=== PATIENT | female | born 1985 | race Caucasian/White ===

== ENCOUNTER 2023-01-16 21:33 | Day surgery (SDC) | payer OTHER ==
[~2023-01-16 21:33] MED LIST: LACTATED RINGERS 1,000 ML IV ONE
[2023-01-16] MEDS ORDERED: LORazepam 2 MG/ML VIAL IVP STA (22:58)
--- NOTE | 2023-01-16 23:15 | HISTORY & PHYSICAL EXAMINATION ---
HPI - Admitted From Admitted from: ED - History Obtained From History obtained from: Patient Exam limitations: No limitations - History of Present Illness Pain/Problem Location Description: Fell on baby gate and now has enlarging vulvar hematoma Severity at the worst: reports: Severe PMH/PSH - Past Medical History Respiratory: positive: None Neuro: positive: None Endocrine/Autoimmune: positive: None GI: positive: None AUTOMOBILE GLASS TECHNICIAN: positive: None, Other (regular menses. 2 vag deliveries. hsuband with vas.) : positive: None HEENT: positive: None, Other (wisdom teeth removed no anesthesia) Psych: positive: None Musculoskeletal: positive: None Derm: positive: None MRSA Hx?: No Social & Family Hx - Living Situation Living Arrangement: At home Living Situation: With family (, 14 yo daughter and 2 yo daughter) - Social History Smoking Status: Never smoker Does the pt drink ETOH?: No Does the pt have substance abuse?: No - POLST Patient has POLST: No - Family History Family History: Mother: Alive and Well Meds/Allgy - Home Medications Home Medications: Ambulatory Orders Medication Instructions Recorded Confirmed No Known Home Medications 01/16/23 01/16/23 - Allergies Allergies/Adverse Reactions: Allergies Allergy/AdvReac Type Severity Reaction Status Date / Time acetaminophen [From Percocet] AdvReac Unknown Verified 01/16/23 21:45 hydrocodone [From Vicodin] AdvReac Unknown Verified 01/16/23 21:46 oxycodone [From Percocet] AdvReac Unknown Verified 01/16/23 21:45 Review of Systems - Constitutional Constitutional: denies: Fever Exam - Vital Signs Reviewed Vital Signs: Yes Vital Signs: Vital Signs x48h Temp Pulse Resp BP Pulse Ox 01/16/23 22:00 91 17 123/72 100 01/16/23 21:38 98.6 F 98 17 111/60 99 - Physical Exam General Appearance: positive: Severe distress, Anxious Cardiovascular: positive: Regular rate & rhythm Extremities: positive: Non-tender Comments/Other: right vulva with enlarging hematoma. very very tender. about 7 cm Impression/Plan - Problem List Problem List: vulvar hematoma. discussed conservative management vs evacuation. given that it is pretty large and seems to be a bit larger since she has arrived in ER, recommend proceed to OR to evacuate. risks of procedure discussed, including bleeding, infection, scarring. will try to stay away from clitoral area to preserve those nerves. consent signed. present for discussion and surgical plan.
[2023-01-16 23:19] LABS: BASOPHILS # (AUTO) 0.1 10^3/uL (0.0-0.1); BASOPHILS % (AUTO) 0.6 %; EOSINOPHILS # (AUTO) 0.1 10^3/uL (0.0-0.7); EOSINOPHILS % (AUTO) 0.8 %; HCT - HEMATOCRIT 39.6 % (37.0-47.0); HGB - HEMOGLOBIN 12.7 g/dL (12.0-16.0); LYMPHOCYTES % (AUTO) 12.5 %; MEAN CORPUSCULAR HEMOGLOBIN 28.2 pg (27.0-31.0); MEAN CORPUSCULAR HGB CONC 32.1 g/dL (32.0-36.0); MEAN PLATELET VOLUME 11.5 fL (7.9-10.8); MONOCYTES # (AUTO) 0.9 10^3/uL (0.0-1.0); MONOCYTES % (AUTO) 5.7 %; NEUTROPHILS # (AUTO) 12.9 10^3/uL (1.5-6.6); NEUTROPHILS % (AUTO) 80.1 %; PLT - PLATELET COUNT 235 10^3/uL (130-450); WHITE BLOOD COUNT 16.1 x10^3/uL (4.8-10.8)
--- NOTE | 2023-01-16 23:22 | ED Physician Documentation ---
PD HPI ABD PAIN - Stated complaint Stated Complaint: FALL/ - Chief complaint Chief Complaint: General - History obtained from History obtained from: Patient, Family - History of Present Illness Pain level max: 9 Pain level now: 9 Quality: Pain Associated symptoms: No: Fever, Nausea, Vomiting, Hematemesis, Diarrhea - Additional information Additional information: Patient is a 37-year-old female who tripped and fell onto a baby gate today injuring her right labia. Noted swelling and increasing pain. No bleeding. Nothing makes it better or worse. Not on blood thinners. No fevers. No chills. Denies any possibility of . Review of Systems Constitutional: denies: Fever, Chills GI: denies: Vomiting, Diarrhea : denies: Dysuria, Frequency, Hesitancy, Now [facility] PD PAST MEDICAL HISTORY - Past Medical History Past Medical History: No Cardiovascular: None Respiratory: None Neuro: None Endocrine/Autoimmune: None GI: None PLUMBING WAREHOUSE HELPER: None, Other (regular menses. 2 vag deliveries. hsuband with vas.) : None HEENT: None, Other (wisdom teeth removed no anesthesia) Psych: None Musculoskeletal: None Derm: None - Past Surgical History Past Surgical History: No - Present Medications Home Medications: Ambulatory Orders Medication Instructions Recorded Confirmed No Known Home Medications 01/16/23 01/16/23 - Allergies Allergies/Adverse Reactions: Allergies Allergy/AdvReac Type Severity Reaction Status Date / Time acetaminophen [From Percocet] AdvReac Unknown Verified 01/16/23 21:45 hydrocodone [From Vicodin] AdvReac Unknown Verified 01/16/23 21:46 oxycodone [From Percocet] AdvReac Unknown Verified 01/16/23 21:45 - Social History Does the pt smoke?: No Smoking Status: Never smoker Does the pt drink ETOH?: No Does the pt have substance abuse?: No - Immunizations Immunizations are current?: Yes - POLST Patient has POLST: No PD ED PE NORMAL - Vitals Vital signs reviewed: Yes - General General: Alert and oriented X 3, No acute distress - HEENT HEENT: Moist mucous membranes - Neck Neck: Supple, no meningeal sign - Cardiac Cardiac: RRR, Strong equal pulses - Respiratory Respiratory: No respiratory distress, Clear bilaterally - Abdomen Abdomen: Soft, Non tender, Non distended - Derm Derm: Warm and dry - Extremities Extremities: Other (Large right-sided vulvar hematoma.) - Neuro Neuro: Alert and oriented X 3 - Psych Psych: Normal mood, Normal affect Results - Vitals Vitals: Vital Signs - 24 hr 01/16/23 01/16/23 21:38 22:00 Temperature 37.0 C Heart Rate 98 91 Respiratory 17 17 Rate Blood Pressure 111/60 123/72 O2 Saturation 99 100 Oxygen O2 Source Room air PD Medical Decision Making - ED course Complexity details: reviewed results, re-evaluated patient, considered differential, d/w patient, d/w family, 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 Discussed the case with gynecology, Dr. Santos who came and evaluated the patient. She will take her to the OR for evacuation. Patient was given a dose of IV Ativan. This document was made in part using voice recognition software. While efforts are made to proofread this document, sound alike and grammatical errors may occur. Departure - Departure Disposition: ED Transfer to [facility] Clinical Impression: Vulvar hematoma Condition: Stable
[2023-01-16] MEDS ORDERED: SUCCINYLCHOLINE 200 MG/10 ML VIAL ONE (23:26)
[2023-01-16] MEDS ORDERED: PROPOFOL 200 MG/20 ML VIAL IVP ONE (23:26)
[2023-01-16] MEDS ORDERED: fentaNYL 100 MCG/2 ML VIAL ONE (23:26)
[2023-01-16] MEDS ORDERED: MIDAZOLAM 2 MG/2 ML VIAL ONE (23:26)
[2023-01-16 23:27] LABS: PARTIAL THROMBOPLASTIN TIME 33.4 secs (24.9-33.3)
[2023-01-16 23:31] LABS: INR 1.2 (0.8-1.2); PT - PROTHROMBIN TIME 12.6 secs (9.9-12.6)
[2023-01-16 23:34] LABS: ALBUMIN 4.7 g/dL (3.2-5.5); BILIRUBIN,TOTAL 0.4 mg/dL (0.2-1.0); POTASSIUM 3.4 mmol/L (3.5-4.5)
[2023-01-16] MEDS ORDERED: DEXAMETHASONE 4 MG/ML VIAL ONE (23:47)
[2023-01-17] MEDS ORDERED: LIDOCAINE 1%-EPI 1:100000 20 ML MDV SUBQ ONE ×2 (00:04)
--- NOTE | 2023-01-17 00:06 | ANESTHESIA ---
Pre-Anesthesia VS, & Labs - Diagnosis expanding vulvar hematoma - Procedure evacuation of vulvar hematoma Vital Signs: Temp Pulse Resp BP Pulse Ox O2 Flow Rate 37.0 C 95 16 109/70 99 01/16/23 21:38 01/16/23 23:30 01/16/23 23:30 01/16/23 23:30 01/16/23 23:30 Height: 5 ft 11 in Weight (kg): 90.265 kg Body Mass Index: 27.7 BMI Classification: Overweight - NPO Last Food Intake: 529-chicken burritos - Is Patient ?: No - Lab Results Current Lab Results: Laboratory Tests 01/16/23 23:23: Blood Type Recheck O POSITIVE 01/16/23 23:12: Sodium 137, Potassium 3.4 L, Chloride 107, Carbon Dioxide 22, Anion Gap 8.0, BUN 15, Creatinine 1.0, Estimated GFR (MDRD) 63 L, Glucose 118 H, Calcium 10.0, Total Bilirubin 0.4, AST 9 L, ALT 6 L, Alkaline Phosphatase 62, Total Protein 7.0, Albumin 4.7, Globulin 2.3, Albumin/Globulin Ratio 2.0, Lipase 22 01/16/23 23:12: PT 12.6, INR 1.2, APTT 33.4 H 01/16/23 23:12: WBC 16.1 H, RBC 4.50, Hgb 12.7, Hct 39.6, MCV 88.0, MCH 28.2, MCHC 32.1, RDW 13.0, Plt Count 235, MPV 11.5 H, Neut # (Auto) 12.9 H, Lymph # (Auto) 2.0, Page # (Auto) 0.9, Eos # (Auto) 0.1, Baso # (Auto) 0.1, Absolute Nucleated RBC 0.00, Nucleated RBC % 0.0 01/16/23 23:12: Blood Type O POSITIVE, Antibody Screen NEGATIVE Lab results reviewed: Yes Fish Bones: 01/16/23 23:12 01/16/23 23:12 Home Medications and Allergies Home Medications: Ambulatory Orders No Known Home Medications 01/16/23 No Known Home Medications 01/16/23 Allergies/Adverse Reactions: Allergies Allergy/AdvReac Type Severity Reaction Status Date / Time acetaminophen [From Percocet] AdvReac Unknown Verified 11/29/23 21:45 hydrocodone [From Vicodin] AdvReac Unknown Verified 01/16/23 21:46 oxycodone [From Percocet] AdvReac Unknown Verified 01/16/23 21:45 Anes History & Medical History - Anesthetic History Family history of Anesthesia Complications: Denies Family history of Malignant Hyperthermia: Denies - Medical History Cardiovascular: reports: None Pulmonary: reports: None Gastrointestinal: reports: None Urinary: reports: None Neuro: reports: None Musculoskeletal: reports: None Endocrine/Autoimmune: reports: None Blood Disorders: reports: None Skin: reports: None Smoking Status: Never smoker Psychosocial: reports: Cannabis (daily use, smokes) Exam General: Alert, Oriented x3, Cooperative, No acute distress Dental: WNL Mouth Openin Fingerbreadth Neck Mobility: Normal Mallampati classification: I Thyromental Distance: 4-6 cm Mental/Cognitive Status: Alert/Oriented X3, Normal for patient Plan Anesthesia Type: General Consent for Procedure(s) Verified and Reviewed: Yes Code Status: Attempt Resuscitation ASA classification: 2-Mild systemic disease Is this case an emergency?: Yes
[2023-01-17] MEDS ORDERED: fentaNYL 100 MCG/2 ML VIAL IVP PRN (00:08)
[2023-01-17] MEDS ORDERED: MORPHINE 2 MG/ML CARPUJECT IVP PRN (00:08)
[2023-01-17] MEDS ORDERED: NALOXONE 0.4 MG/ML VIAL IVP PRN (00:08)
[2023-01-17] MEDS ORDERED: HYDROmorphone 0.5 MG/0.5 ML SYRINGE IVP PRN (00:08)
[2023-01-17] MEDS ORDERED: ONDANSETRON 4 MG/2 ML VIAL IVP PRN (00:08)
[2023-01-17] MEDS ORDERED: ATROPINE ABBOJECT 1 MG/10 ML SYRINGE IVP PRN (00:08)
[2023-01-17] MEDS ORDERED: HYDROmorphone 1 MG/ML CARPUJECT ONE (00:14)
[2023-01-17] MEDS ORDERED: BUPIVACAINE 0.5% PF 10 ML VIAL SUBQ ONE (00:30)
--- NOTE | 2023-01-17 00:56 | OPERATIVE REPORT ---
Operative Report - General Procedure Date: 01/17/23 Planned Procedure: evacuation vulvar hematoma on right. Pre-Op Diagnosis: vulvar hematoma right Procedure Performed: evacuation of right vulvar hematoma Post Op Diagnosis: same - Procedure Note Primary Surgeon: Sheila Santos MD Anesthesia Provider: Ayleen Ramos CRNA IV Fluids (mL): 1,200 Estimated Blood Loss (mL): 100 Urine Output (mL): 50 Findings: vulvar hematoma approx 10 cm long, 4 cm high and 7 cm wide on right. Complications: none - Other Other Information/Narrative: Patient brought to OR and general anesthesia was administered with ETT. Patient's legs were put in Carson-type stirrups. vulvar area prepped with hibiclens. Patient was draped. 2 gram Ancef were given. Time out was done. 11 blade was used to open the skin on the right vulva at the fold of the labia minora to majora, about 4cm. suction was placed and blood was evacuated. there was still red fresh blood flowing. there was very little clotted blood. The tissue around the opening was compressed trying to get all the blood out that I was able to. the bleeding was coming from lower in the wound, likely coming from the posterial labial artery and maybe the artery to the vestibular bulb. I did not see an active pumper but the blood pooled up immediately once it was cleared. I placed a figure of 8 stitch in the area I thought was bleeding and it did not stop so I did not tie this. I then identified the bleeding below this area and a bit laterally and placed a 2 figure of 8 stitches there and the bleeding pretty much stopped. I used 3-0 Vicryl for this. I used this stitch to close the deep open spaces. I injected with some lidocaine with epi and then 0.5% Marcaine. Then I used a 3-0 Monocryl to close the sub Q and subcuticular spaces. The area was still puffy and bruised but it was much less tense and was smaller. Straight cath was placed in bladder after prep and 50 cc was drained.
[2023-01-17] MEDS ORDERED: LACTATED RINGERS 1,000 ML IV SCH (01:00)
[2023-01-17 04:38] VITALS: O2SAT 95
[2023-01-17 06:12] VITALS: BP 118/60
== END 2023-01-17 05:40 | disposition home or self-care (01) ==
LOC: ED 21:33 → SDS 23:00 → MS2 01-17 01:13 → SDS 01-17 05:40
PROVIDERS: ATTEND Obstetrics & Gynecology
DX: S30.23XA Contusion of vagina and vulva, initial encounter (principal); W01.198A Fall on same level from slipping, tripping and stumbling with subsequent striking against other object, initial encounter
CPT/HCPCS: 36415; 56405; 80053; 83690; 85025; 85610; 85730; 86850; 86900; 86901; 96374; 99284; 99285; J0330; J1170; J2060; J7120